=== PATIENT | female | born 1975 | race Two or more races ===

== ENCOUNTER 2019-07-08 11:39 | Inpatient (IN) | payer OTHER ==
[2019-07-08 12:37] VITALS: BMI 23.6
--- NOTE | 2019-07-08 13:31 | HP ---
COWS - Scale Resting Pulse: 0= OK 80 or Below Sweatin=Flushed/Facial Moisture Restless Observation: 1= Difficult to Sit Still Pupil Size: 1= Pupils >than Normal Bone or Joint Aches: 2= Severe Diffuse Aches Runny Nose/ Eye Tearin= Runny Nose/Eyes GI Upset > 30mins: 2= Nausea/Diarrhea Tremor Observation: 4= Gross Tremor/Twitching Yawning Observation: 2= >3x During Session Anxiety or Irritability: 1=Feels Anxious/Irritable Goose Flesh Skin: 0=Smooth Skin COWS Score: 17 CIWA Score Nausea/Vomitin Muscle Tremors: 3 Anxiety: 3 Agitation: 3 Paroxysmal Sweats: 1-Minimal Palms Moist Orientation: 0-Oriented Tacttile Disturbances: 0-None Auditory Disturbances: 0-None Visual Disturbances: 2-Mild Sensitivity Headache: 4-Moderately Severe CIWA-Ar Total Score: 19 - Admission Criteria [facility]AS[facility] Guidelines: Admission for Medically Managed Detox: Requires at least one of the followin. CIWA greater than 12 2. Seizures within the past 24 hours 3. Delirium tremens within the past 24 hours 4. Hallucinations within the past 24 hours 5. Acute intervention needed for co occurring medical disorder 6. Acute intervention needed for co occurring psychiatric disorder 7. Severe withdrawal that cannot be handled at a lower level of care (continued vomiting, continued diarrhea, abnormal vital signs) requiring intravenous medication and/or fluids 8. Admission ROS [facility] - [facility] Chief Complaint: "I'm tired of feeling down, being hopeless and depressed. I want to be a better mom" Allergies/Adverse Reactions: Allergies Allergy/AdvReac Type Severity Reaction Status Date / Time No Known Allergies Allergy Verified 07/08/19 12:29 History of Present Illness: Patient 43 year old female with opiate dependence and alcohol dependence, cocaine and marijuana use disorder. Patient is drinking 1/5 of vodka daily and started 5 years ago. She has had blackouts from overdrinking, last one 4 months ago. Patient 6-8 bags of heroin intranasally daily, started 4 years ago. Patient also uses marijuana about $20 daily since age 33 Patient also occasionally uses cocaine on weekends $50 Patient smokes 1ppd since the age of 21. Psych Hx: None but is depressed and anxious now. Prior Surg Hx: Gastric bypass 14 years ago, tubal ligation 2003 PMH: Asthma on albuterol only. - Ebola screening Have you traveled outside of the country in the last 21 days: No (N) Have you had contact with anyone from an Ebola affected area: No Have you been sick,other than usual withdrawal symptoms: No Do you have a fever: No - Review of Systems Constitutional: Chills, Diaphoresis EENT: reports: Blurred Vision Respiratory: reports: No Symptoms reported Cardiac: reports: No Symptoms Reported GI: reports: Nausea, Abdominal cramping : reports: No Symptoms Reported Musculoskeletal: reports: Muscle Pain Integumentary: reports: No Symptoms Reported Neuro: reports: Headache Endocrine: reports: No Symptoms Reported Hematology: reports: Anemia Psychiatric: reports: Mood/Affect Appropiate, Orientated x3 Other Systems: Reviewed and Negative Patient History - Patient Medical History Hx Anemia: Yes Hx Asthma: Yes Hx Chronic Obstructive Pulmonary Disease (COPD): No Hx Cancer: No Hx Cardiac Disorders: No Hx Congestive Heart Failure: No Hx Hypertension: No Hx Hypercholesterolemia: No Hx Pacemaker: No HX Cerebrovascular Accident: No Hx Seizures: No Hx Dementia: No Hx Diabetes: No Hx Gastrointestinal Disorders: No Hx Liver Disease: No Hx Genitourinary Disorders: No Hx Sexually Transmitted Disorders: No Hx Renal Disease (ESRD): No Hx Thyroid Disease: No Hx Human Immunodeficiency Virus (HIV): No Hx Hepatitis C: No Hx Depression: No (depressed but never had SI or plans.) Hx Suicide Attempt: No Hx Bipolar Disorder: No Hx Schizophrenia: No - Patient Surgical History Past Surgical History: Yes Hx Abdominal Surgery: Yes (gastric bypass 14 years ago) Other Surgical History: tubal ligation 2003 - PPD History Previous Implant?: Yes Documented Results: Negative w/proof Implanted On Prior [facility] Admission?: No Date: 06/10/17 PPD to be Administered?: No - Reproductive History Patient is a Female of Child Bearing Age (11 -55 yrs old): Yes Last Menstrual Period: 07/08/19 (tubal ligation also) Patient : No - Smoking Cessation Smoking history: Current every day smoker Have you smoked in the past 12 months: Yes Aproximately how many cigarettes per day: 20 Hx Chewing Tobacco Use: No Initiated information on smoking cessation: Yes 'Breaking Loose' booklet given: 07/08/19 - Substance & Tx. History Hx Alcohol Use: Yes (11/13 pint vodka) Hx Substance Use: Yes Substance Use Type: Cocaine, Heroin, Marijuana, Opiates Hx Substance Use Treatment: Yes (detox 10 years ago) - Substances abused Heroin Substance route: Inhalation Frequency: Daily Amount used: 6-8 BAGS Age of first use: 39 Date of last use: 07/08/19 Alcohol Substance route: Oral Frequency: Daily Amount used: 1/5TH VODKA Age of first use: 23 Date of last use: 07/08/19 Family Disease History - Family Disease History Family Disease History: Other: Father ( unknown), Mother (alive and well ), Sister (3 sisters, alive and well) Admission Physical Exam [facility] - Vital Signs Vital Signs: Vital Signs - 24 hr 07/08/19 12:31 Temperature 97.8 F Pulse Rate 80 Respiratory 16 Rate Blood Pressure 104/75 - Physical HEENTM: Yes: EOMI, Hearing grossly Normal, Normocephalic, Pharynx Normal Respiratory: Yes: Chest Non-Tender, Lungs Clear, Normal Breath Sounds, No Respiratory Distress Neck: Yes: No masses,lesions,Nodules, Supple, Trachea in good position Breast: Yes: Breast Exam Deferred Cardiology: Yes: Regular Rhythm, Regular Rate, S1, S2 Abdominal: Yes: Non Tender, Flat, Soft, Increased Bowel Sounds Genitourinary: Yes: Within Normal Limits Back: Yes: Normal Inspection Musculoskeletal: Yes: full range of Motion, Gait Steady, Pelvis Stable Extremities: Yes: Normal Capillary Refill, Normal Inspection, Normal Range of Motion, Non-Tender Neurological: Yes: disc sander II-XII NML intact, Fully Oriented, Alert, Motor Strength 5/5 Integumentary: Yes: Normal Color, Warm Lymphatic: Yes: Within Normal Limits - Diagnostic (1) Opioid dependence with withdrawal Current Visit: Yes Status: Acute (2) Asthma Current Visit: Yes Status: Acute (3) 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 Current Visit: Yes Status: Acute Cleared for Admission [facility] - Detox or Rehab [facility] Level of Care: Medically Managed Detox Regimen/Protocol: Methadone/Librium Screened but not Admitted - Documentation of Visit Screened but not Admitted: No Breathalyzer - Breathalyzer Breathalyzer: 0.031 Vital Signs - Vital Signs Vital signs refused: No Temperature: 97.8 F Temperature source: Oral Pulse Rate: 80 Respiratory Rate: 16 Blood Pressure: 104/75 BP Location: Left Arm Blood Pressure position: Sitting - Height Height: 5 ft 4 in - Weight Weight: 138 lb Weight measurement method: Standing scale - BMI Body Mass Index (BMI): 23.6 - Bowel Function Bowel Movement: Yes Inpatient Rehab Admission - Rehab Decision to Admit Inpatient rehab admission?: No
[2019-07-08] MEDS ORDERED: chlordiazePOXIDE HCL 10 MG CAPSULE PO PRN (13:45)
[2019-07-08] MEDS ORDERED: cloNIDine HCL 0.1 MG TABLET PO PRN (13:45)
[2019-07-08] MEDS ORDERED: METHADONE HCL 10 MG TABLET (FOR DETOX USE ONLY) PO ONE (14:20)
[2019-07-08] MEDS: NICOTINE 14 MG/24 HOURS TOPICAL PATCH TD SCH (15:55)
[2019-07-08] MEDS: ALBUTEROL SO4 8 GM HFA INHALER IH SCH ×2 (15:56→22:25)
[2019-07-08 17:52] LABS: HEMATOCRIT 33.2 % (32.4-45.2); HEMOGLOBIN 10.8 GM/dL (10.7-15.3); MCHC 32.5 g/dl (32.0-36.0); MEAN CELL VOLUME 82.9 fl (80-96); MEAN PLT VOLUME 8.9 fl (7.5-11.1); PLATELET COUNT 237 K/MM3 (134-434)
[2019-07-08 18:06] LABS: ALBUMIN 3.6 g/dl (3.4-5.0); BILIRUBIN,TOTAL 0.4 mg/dL (0.2-1); BLOOD UREA NITROGEN 5.8 mg/dL (7-18); CALCIUM 8.5 mg/dL (8.5-10.1); CREATININE 0.7 mg/dL (0.55-1.3); POTASSIUM 3.3 mmol/L (3.5-5.1); TOT PROT 6.7 g/dl (6.4-8.2)
[2019-07-08] MEDS: chlordiazePOXIDE HCL 25 MG CAPSULE PO SCH (22:24)
[2019-07-09] MEDS: chlordiazePOXIDE HCL 25 MG CAPSULE PO SCH ×3 (05:31→21:40)
[2019-07-09] MEDS: ALBUTEROL SO4 8 GM HFA INHALER IH SCH ×3 (05:32→21:43)
[2019-07-09] MEDS ORDERED: METHADONE HCL 5 MG TABLET (FOR DETOX USE ONLY) ONE (09:37)
[2019-07-09] MEDS ORDERED: METHADONE HCL 10 MG TABLET (FOR DETOX USE ONLY) ONE (09:37)
[2019-07-09] MEDS ORDERED: METHADONE (DETOX) 20 MG, METHADONE (DETOX) 5 MG PO ONE (10:00)
[2019-07-09] MEDS: NICOTINE 14 MG/24 HOURS TOPICAL PATCH TD SCH (10:31)
--- NOTE | 2019-07-09 16:07 | PN ---
S CIWA - CIWA Score Nausea/Vomitin Muscle Tremors: 3 Anxiety: 4-Mod. Anxious/Guarded Agitation: 3 Paroxysmal Sweats: 1-Minimal Palms Moist Orientation: 0-Oriented Tacttile Disturbances: 0-None Auditory Disturbances: 0-None Visual Disturbances: 0-None Headache: 0-None Present CIWA-Ar Total Score: 14 [facility] COWS - Scale Resting Pulse: 1= [place] 81-100 Sweatin= Chills/Flushing Restless Observation: 0= Sits Still Pupil Size: 0= Normal to Room Light Bone or Joint Aches: 4=Acute Joint/Muscle Pain Runny Nose/ Eye Tearin= None GI Upset > 30mins: 2= Nausea/Diarrhea (no diarrhea) Tremor Observation of Outstretched Hands: 1= Tremor [place], Not Seen Yawning Observation: 0= None Anxiety or Irritability: 2=Irritable/Anxious Goose Flesh Skin: 0=Smooth Skin COWS Score: 11 S Progress Note (SOAP) Subjective: 43 y/o male admitted for opioid and alcohol detox. Pt c/o Nausea, body aches, chills, anxiety, irritability. Objective: 07/09/19 16:05 Vital Signs - 24 hr 07/08/19 07/08/19 07/09/19 17:51 21:36 00:30 Temperature 98.1 F 97.9 F Pulse Rate 89 77 Respiratory 16 16 18 Rate Blood Pressure 92/67 110/65 07/09/19 07/09/19 07/09/19 03:30 06:10 09:15 Temperature 98.8 F 97.9 F Pulse Rate 66 76 Respiratory 18 16 18 Rate Blood Pressure 95/61 105/74 07/09/19 13:11 Temperature 97.7 F Pulse Rate 82 Respiratory 18 Rate Blood Pressure 97/63 Laboratory Tests 07/08/19 07/08/19 07/08/19 14:10 14:10 14:10 WBC 5.0 RBC 4.00 Hgb 10.8 Hct 33.2 MCV 82.9 MCH 27.0 MCHC 32.5 RDW 16.0 H Plt Count 237 MPV 8.9 Sodium 142 Potassium 3.3 L Chloride 107 Carbon Dioxide 26 Anion Gap 8 BUN 5.8 L Creatinine 0.7 Est GFR (CKD-EPI)AfAm 123.86 Est GFR (CKD-EPI)NonAf 106.87 Random Glucose 68 L Calcium 8.5 Total Bilirubin 0.4 AST 21 ALT 18 Alkaline Phosphatase 95 Total Protein 6.7 Albumin 3.6 RPR Titer Nonreactive h/h=/33.2 k+ = 3.3 Assessment: 07/09/19 16:06 withdrawal sx hypokalemia Plan: continue detox meth/rebecca taper kdur 20 meq po bid increase po fluids as tolerated
[2019-07-09] MEDS ORDERED: POTASSIUM CHLORIDE TABS 20 MEQ TABLET.ER (FP) PO ONE (16:08)
[2019-07-09] MEDS ORDERED: FERROUS SO4 325 MG TABLET (FP) PO SCH (16:15)
[2019-07-09] MEDS: ONDANSETRON *ODT* 4 MG TABLET SL PRN (17:11)
[2019-07-09] MEDS: POTASSIUM CHLORIDE TABS 20 MEQ TABLET.ER (FP) PO SCH (21:40)
[2019-07-10] MEDS: ALBUTEROL SO4 8 GM HFA INHALER IH SCH ×3 (05:28→22:08)
[2019-07-10] MEDS: chlordiazePOXIDE 5 MG CAPSULE PO SCH ×3 (05:28→22:08)
--- NOTE | 2019-07-10 09:42 | PN ---
[facility] CIWA - CIWA Score Nausea/Vomitin-Mild Nausea/No Vomiting Muscle Tremors: 3 Anxiety: 2 Agitation: 2 Paroxysmal Sweats: 1-Minimal Palms Moist Orientation: 0-Oriented Tacttile Disturbances: 0-None Auditory Disturbances: 0-None Visual Disturbances: 0-None Headache: 1-Very Mild CIWA-Ar Total Score: 10 [facility] COWS - Scale Resting Pulse: 0= [place] 80 or Below Sweatin= Chills/Flushing Restless Observation: 0= Sits Still Pupil Size: 0= Normal to Room Light Bone or Joint Aches: 1= Mild Discomfort Runny Nose/ Eye Tearin= Nasal Congestion GI Upset > 30mins: 2= Nausea/Diarrhea (no diarrhea) Tremor Observation of Outstretched Hands: 2= Slight Tremor Visible Yawning Observation: 1= 1-2x During Session Anxiety or Irritability: 2=Irritable/Anxious Goose Flesh Skin: 0=Smooth Skin COWS Score: 10 [facility] Progress Note (SOAP) Subjective: 43 years old female first patient [facility] admission was admitted on 07/08 for acute alcohol and opiate withdrawal sx management doing well with librium and methadone detox regimen sweat and tremor Objective: 07/10/19 09:43 Vital Signs Temperature 98.2 F 07/10/19 06:29 Pulse Rate 69 07/10/19 06:29 Respiratory Rate 16 07/10/19 06:29 Blood Pressure 99/65 07/10/19 06:29 O2 Sat by Pulse Oximetry (%) Laboratory Last Values WBC 5.0 K/mm3 (4.0-10.0) 07/08/19 14:10 RBC 4.00 M/mm3 (3.60-5.2) 07/08/19 14:10 Hgb 10.8 GM/dL (10.7-15.3) 07/08/19 14:10 Hct 33.2 % (32.4-45.2) 07/08/19 14:10 MCV 82.9 fl (80-96) 07/08/19 14:10 MCH 27.0 pg (25.7-33.7) 07/08/19 14:10 MCHC 32.5 g/dl (32.0-36.0) 07/08/19 14:10 RDW 16.0 % (11.6-15.6) H 07/08/19 14:10 Plt Count 237 K/MM3 (134-434) 07/08/19 14:10 MPV 8.9 fl (7.5-11.1) 07/08/19 14:10 Sodium 142 mmol/L (136-145) 07/08/19 14:10 Potassium 3.3 mmol/L (3.5-5.1) L 07/08/19 14:10 Chloride 107 mmol/L (98-107) 07/08/19 14:10 Carbon Dioxide 26 mmol/L (21-32) 07/08/19 14:10 Anion Gap 8 MMOL/L (8-16) 07/08/19 14:10 BUN 5.8 mg/dL (7-18) L 07/08/19 14:10 Creatinine 0.7 mg/dL (0.55-1.3) 07/08/19 14:10 Est GFR (CKD-EPI)AfAm 123.86 07/08/19 14:10 Est GFR (CKD-EPI)NonAf 106.87 07/08/19 14:10 Random Glucose 68 mg/dL (74-106) L 07/08/19 14:10 Calcium 8.5 mg/dL (8.5-10.1) 07/08/19 14:10 Total Bilirubin 0.4 mg/dL (0.2-1) 07/08/19 14:10 AST 21 U/L (15-37) 07/08/19 14:10 ALT 18 U/L (13-61) 07/08/19 14:10 Alkaline Phosphatase 95 U/L (45-117) 07/08/19 14:10 Total Protein 6.7 g/dl (6.4-8.2) 07/08/19 14:10 Albumin 3.6 g/dl (3.4-5.0) 07/08/19 14:10 RPR Titer Nonreactive (NONREACTIVE) 07/08/19 14:10 lab noted 07/10/19 09:45 K+ supplement with repeat K+ on 07/12/10 Assessment: 07/10/19 09:45 alcohol and opiate withdrawal sx alert oriented x 3 breath ease and even Plan: continue libirum and methadone detox regimen
[2019-07-10] MEDS ORDERED: METHADONE HCL 10 MG TABLET (FOR DETOX USE ONLY) PO ONE (10:00)
[2019-07-10] MEDS: POTASSIUM CHLORIDE TABS 20 MEQ TABLET.ER (FP) PO SCH ×2 (10:31→22:09)
[2019-07-10] MEDS: NICOTINE 14 MG/24 HOURS TOPICAL PATCH TD SCH (10:31)
[2019-07-10] MEDS: BISMUTH SUBSALICYLATE 262 MG/15 ML BTL PO SCH (14:16)
[2019-07-10] MEDS: QUEtiapine FUMARATE 50 MG TABLET PO SCH (22:09)
[2019-07-11] MEDS ORDERED: chlordiazePOXIDE HCL 10 MG CAPSULE PO PRN
[2019-07-11] MEDS: ALBUTEROL SO4 8 GM HFA INHALER IH SCH ×3 (06:16→21:45)
[2019-07-11] MEDS: chlordiazePOXIDE HCL 10 MG CAPSULE PO SCH ×3 (06:16→21:45)
[2019-07-11] MEDS ORDERED: METHADONE HCL 5 MG TABLET (FOR DETOX USE ONLY) ONE (08:25)
[2019-07-11] MEDS ORDERED: METHADONE HCL 10 MG TABLET (FOR DETOX USE ONLY) ONE (08:25)
--- NOTE | 2019-07-11 08:58 | PN ---
[facility] CIWA - CIWA Score Nausea/Vomitin-No Nausea/No Vomiting Muscle Tremors: 3 Anxiety: 1-Mildly Anxious Agitation: 2 Paroxysmal Sweats: 2 Orientation: 0-Oriented Tacttile Disturbances: 0-None Auditory Disturbances: 0-None Visual Disturbances: 0-None Headache: 0-None Present CIWA-Ar Total Score: 8 [facility] COWS - Scale Resting Pulse: 0= [place] 80 or Below Sweatin= Chills/Flushing Restless Observation: 0= Sits Still Pupil Size: 0= Normal to Room Light Bone or Joint Aches: 1= Mild Discomfort Runny Nose/ Eye Tearin= Nasal Congestion GI Upset > 30mins: 1= Stomach Cramp Tremor Observation of Outstretched Hands: 2= Slight Tremor Visible Yawning Observation: 1= 1-2x During Session Anxiety or Irritability: 1=Feels Anxious/Irritable Goose Flesh Skin: 0=Smooth Skin COWS Score: 8 [facility] Progress Note (SOAP) Subjective: doing well with librium and methadone detox regimen feeling better today less tremor mild body aches prefers resting on bed "little longer" Objective: 07/11/19 08:58 Vital Signs Temperature 98.5 F 07/11/19 07:19 Pulse Rate 67 07/11/19 07:19 Respiratory Rate 18 07/11/19 07:19 Blood Pressure 98/58 L 07/11/19 07:19 O2 Sat by Pulse Oximetry (%) Laboratory Last Values WBC 5.0 K/mm3 (4.0-10.0) 07/08/19 14:10 RBC 4.00 M/mm3 (3.60-5.2) 07/08/19 14:10 Hgb 10.8 GM/dL (10.7-15.3) 07/08/19 14:10 Hct 33.2 % (32.4-45.2) 07/08/19 14:10 MCV 82.9 fl (80-96) 07/08/19 14:10 MCH 27.0 pg (25.7-33.7) 07/08/19 14:10 MCHC 32.5 g/dl (32.0-36.0) 07/08/19 14:10 RDW 16.0 % (11.6-15.6) H 07/08/19 14:10 Plt Count 237 K/MM3 (134-434) 07/08/19 14:10 MPV 8.9 fl (7.5-11.1) 07/08/19 14:10 Sodium 142 mmol/L (136-145) 07/08/19 14:10 Potassium 3.3 mmol/L (3.5-5.1) L 07/08/19 14:10 Chloride 107 mmol/L (98-107) 07/08/19 14:10 Carbon Dioxide 26 mmol/L (21-32) 07/08/19 14:10 Anion Gap 8 MMOL/L (8-16) 07/08/19 14:10 BUN 5.8 mg/dL (7-18) L 07/08/19 14:10 Creatinine 0.7 mg/dL (0.55-1.3) 07/08/19 14:10 Est GFR (CKD-EPI)AfAm 123.86 07/08/19 14:10 Est GFR (CKD-EPI)NonAf 106.87 07/08/19 14:10 Random Glucose 68 mg/dL (74-106) L 07/08/19 14:10 Calcium 8.5 mg/dL (8.5-10.1) 07/08/19 14:10 Total Bilirubin 0.4 mg/dL (0.2-1) 07/08/19 14:10 AST 21 U/L (15-37) 07/08/19 14:10 ALT 18 U/L (13-61) 07/08/19 14:10 Alkaline Phosphatase 95 U/L (45-117) 07/08/19 14:10 Total Protein 6.7 g/dl (6.4-8.2) 07/08/19 14:10 Albumin 3.6 g/dl (3.4-5.0) 07/08/19 14:10 RPR Titer Nonreactive (NONREACTIVE) 07/08/19 14:10 lab noted 07/11/19 08:58 encourage oral fluid low K+ continue K+ supplement repeat 07/12/19 Assessment: 07/11/19 08:59 alcohol and opiate withdrawal sx alert speech clearly tolerate food and fluid well denies dizziness Plan: continue librium and methadone detox regimen
[2019-07-11] MEDS ORDERED: METHADONE (DETOX) 10 MG, METHADONE (DETOX) 5 MG PO ONE (10:00)
[2019-07-11] MEDS: POTASSIUM CHLORIDE TABS 20 MEQ TABLET.ER (FP) PO SCH ×2 (10:09→21:45)
[2019-07-11] MEDS: BISMUTH SUBSALICYLATE 262 MG/15 ML BTL PO SCH (10:09)
[2019-07-11] MEDS: NICOTINE 14 MG/24 HOURS TOPICAL PATCH TD SCH (10:11)
[2019-07-11] MEDS: ONDANSETRON *ODT* 4 MG TABLET SL PRN (19:32)
[2019-07-11] MEDS: QUEtiapine FUMARATE 50 MG TABLET PO SCH (21:45)
[2019-07-12] MEDS ORDERED: chlordiazePOXIDE HCL 10 MG CAPSULE PO ONE (05:00)
[2019-07-12] MEDS: ALBUTEROL SO4 8 GM HFA INHALER IH SCH ×3 (05:22→22:01)
[2019-07-12] MEDS ORDERED: METHADONE HCL 10 MG TABLET (FOR DETOX USE ONLY) PO ONE (10:00)
[2019-07-12] MEDS: POTASSIUM CHLORIDE TABS 20 MEQ TABLET.ER (FP) PO SCH ×2 (10:11→22:00)
[2019-07-12] MEDS: BISMUTH SUBSALICYLATE 262 MG/15 ML BTL PO SCH (10:13)
[2019-07-12] MEDS: NICOTINE 14 MG/24 HOURS TOPICAL PATCH TD SCH (10:13)
--- NOTE | 2019-07-12 10:54 | PN ---
[facility] Progress Note Note: c/o left foot pain from left 5th toe "pump" into the floor of shower wall on pain on ambulation left 5th toe skin intact mild swell tender on palpate limited extension and dorsal flexion kinza bandage for immobilization encourage elevation resting rule out fracture left foot x ray
[2019-07-12] MEDS: hydrOXYzine PAMOATE 25 MG CAPSULE (FP) PO PRN ×2 (18:31→22:01)
[2019-07-12] MEDS: QUEtiapine FUMARATE 50 MG TABLET PO SCH (22:00)
[2019-07-13] MEDS: ALBUTEROL SO4 8 GM HFA INHALER IH SCH (05:24)
[2019-07-13] MEDS ORDERED: METHADONE HCL 5 MG TABLET (FOR DETOX USE ONLY) PO ONE (06:00)
[2019-07-13 09:17] VITALS: BP 116/77; PULSE 70; TEMP 98.1
[2019-07-13] MEDS: BISMUTH SUBSALICYLATE 262 MG/15 ML BTL PO SCH (10:30)
[2019-07-13] MEDS: POTASSIUM CHLORIDE TABS 20 MEQ TABLET.ER (FP) PO SCH (10:30)
[2019-07-13] MEDS: NICOTINE 14 MG/24 HOURS TOPICAL PATCH TD SCH (10:30)
[2019-07-13] MEDS: hydrOXYzine PAMOATE 25 MG CAPSULE (FP) PO PRN (10:32)
== END 2019-07-13 12:35 | disposition other institution (70) | DRG 773 ==
LOC: YASAS 11:39 → Y3N 14:15
PROVIDERS: ADMIT Surgery; ATTEND Surgery
PROC: HZ2ZZZZ Detoxification Services for Substance Abuse Treatment (ICD-10-PCS; principal; 2019-07-08)
DX: F10.230 Alcohol dependence with withdrawal, uncomplicated (principal); F11.23 Opioid dependence with withdrawal; F14.10 Cocaine abuse, uncomplicated; F12.10 Cannabis abuse, uncomplicated; F19.24 Other psychoactive substance dependence with psychoactive substance-induced mood disorder; E87.6 Hypokalemia; J45.909 Unspecified asthma, uncomplicated; M79.672 Pain in left foot; W22.8XXA Striking against or struck by other objects, initial encounter; Y93.E1 Activity, personal bathing and showering; Y92.231 Patient bathroom in hospital as the place of occurrence of the external cause; Y99.8 Other external cause status; Z98.84 Bariatric surgery status
CPT/HCPCS: 36415; 80053; 81025; 84132; 85027; 86480; 86593; Q0162

== ENCOUNTER 2019-07-13 12:50 | Inpatient (IN) | payer OTHER | END 2019-07-26 09:42 | disposition home or self-care (01) | LOC: Y3E 07-25 19:20 → YASAS 12:50 → Y3W 12:51 ==

== ENCOUNTER 2022-05-30 12:15 | Inpatient (IN) | payer OTHER ==
[2022-05-30 14:14] VITALS: BMI 19.2
[2022-05-30] MEDS ORDERED: MAGNESIUM HYDROX 2400MG/30ML ORAL SUSPENSION 30 ML CUP PO PRN (17:29)
[2022-05-30] MEDS ORDERED: IBUPROFEN 400 MG TABLET (FP) PO PRN (17:29)
[2022-05-30] MEDS ORDERED: NALOXONE HCL 0.4 MG/ML VIAL IM PRN (17:29)
[2022-05-30] MEDS ORDERED: LOPERAMIDE HCL 2 MG CAPSULE PO PRN (17:29)
[2022-05-30] MEDS ORDERED: ACETAMINOPHEN 325 MG TABLET (FP) PO PRN (17:29)
[2022-05-30] MEDS ORDERED: BISMUTH SUBSALICYLATE 524 MG/30 ML PO PRN (17:29)
[2022-05-30] MEDS ORDERED: NICOTINE POLACRILEX 2 MG GUM BUC PRN (17:29)
[2022-05-30] MEDS ORDERED: MAGNESIUM CITRATE 300 ML BOTTLE PO PRN (17:29)
[2022-05-30] MEDS ORDERED: BENZOCAINE/MENTHOL (CHLORASEPTIC ) LOZENGE MM PRN (17:29)
[2022-05-30] MEDS ORDERED: IBUPROFEN 600 MG TABLET (FP) PO PRN (17:29)
[2022-05-30] MEDS ORDERED: methaDONE HCL 10 MG TABLET (FOR DETOX USE ONLY) PO ONE (19:00)
[2022-05-30] MEDS: THIAMINE HCL 100 MG TABLET (FP) PO SCH (22:20)
[2022-05-30] MEDS: MELATONIN 5 MG TABLETS PO SCH (22:21)
[2022-05-30] MEDS: MAG HYDROX/AL HYDROX/SIMETH 30 ML UNIT-DOSE CUP PO PRN (23:37)
[2022-05-31] MEDS: DICYCLOMINE HCL 10 MG CAPSULE PO PRN ×2 (00:57→09:04)
[2022-05-31] MEDS: SUCRALFATE 1 GM TABLET (FP) PO SCH ×4 (02:24→15:53)
[2022-05-31] MEDS ORDERED: PROCHLORPERAZINE MALEATE 5 MG TABLET PO PRN (02:59)
[2022-05-31] MEDS ORDERED: PROCHLORPERAZINE MALEATE 5 MG TABLET PO ONE (02:59)
[2022-05-31] MEDS: cloNIDine HCL 0.1 MG TABLET PO PRN (03:10)
[2022-05-31] MEDS ORDERED: hydrOXYzine PAMOATE 50 MG CAPSULE (FP) PO ONE (03:11)
[2022-05-31] MEDS: METHOCARBAMOL 500 MG TABLET PO PRN ×3 (03:11→18:44)
[2022-05-31] MEDS: clonazePAM 0.5 MG ODT TABLETS SL PRN ×2 (05:36→18:44)
[2022-05-31 08:57] LABS: ALBUMIN 3.4 g/dl (3.4-5.0); CALCIUM 8.2 mg/dL (8.5-10.1)
[2022-05-31 08:59] LABS: BILIRUBIN,TOTAL 0.4 mg/dL (0.2-1); CREATININE 0.7 mg/dL (0.55-1.3); TOT PROT 6.2 g/dl (6.4-8.2)
[2022-05-31 09:00] LABS: HEMATOCRIT 29.7 % (32.4-45.2); HEMOGLOBIN 9.5 GM/dL (10.7-15.3); MCH 26.4 pg (25.7-33.7); MCHC 31.8 g/dl (32.0-36.0); MEAN PLT VOLUME 8.2 fl (7.5-11.1); PLATELET COUNT 271 10^3/uL (134-434); RBC 3.58 M/mm3 (3.60-5.2); WHITE BLOOD COUNT 11.6 K/mm3 (4.0-10.0)
[2022-05-31] MEDS: ACETAMINOPHEN 325 MG TABLET (FP) PO PRN ×2 (09:06→14:42)
[2022-05-31] MEDS ORDERED: methaDONE HCL 10 MG TABLET (FOR DETOX USE ONLY) ONE (10:07)
[2022-05-31] MEDS: PRENATAL VITAMINS W/ FOLIC ACID TABLET (FP) PO SCH (10:37)
[2022-05-31] MEDS: NICOTINE 14 MG/24 HOURS TOPICAL PATCH TD SCH (10:39)
[2022-05-31] MEDS: MAG HYDROX/AL HYDROX/SIMETH 30 ML UNIT-DOSE CUP PO PRN (14:45)
[2022-05-31] MEDS: PANTOPRAZOLE 20 MG TABLET PO SCH (15:53)
[2022-05-31] MEDS: MELATONIN 5 MG TABLETS PO SCH (22:29)
[2022-05-31] MEDS: THIAMINE HCL 100 MG TABLET (FP) PO SCH (22:29)
[2022-06-01] MEDS: cloNIDine HCL 0.1 MG TABLET PO PRN (01:28)
[2022-06-01] MEDS: ACETAMINOPHEN 325 MG TABLET (FP) PO PRN ×3 (05:06→23:05)
[2022-06-01] MEDS: SUCRALFATE 1 GM TABLET (FP) PO SCH ×3 (06:33→17:11)
[2022-06-01] MEDS ORDERED: methaDONE HCL 10 MG TABLET (FOR DETOX USE ONLY) PO ONE (10:00)
[2022-06-01] MEDS: DICYCLOMINE HCL 10 MG CAPSULE PO PRN (10:24)
[2022-06-01] MEDS: NICOTINE 14 MG/24 HOURS TOPICAL PATCH TD SCH (10:24)
[2022-06-01] MEDS: PRENATAL VITAMINS W/ FOLIC ACID TABLET (FP) PO SCH (10:24)
[2022-06-01] MEDS: PANTOPRAZOLE 20 MG TABLET PO SCH (10:24)
[2022-06-01] MEDS: METHOCARBAMOL 500 MG TABLET PO PRN ×2 (10:24→18:51)
[2022-06-01] MEDS: hydrOXYzine PAMOATE 25 MG CAPSULE (FP) PO PRN ×2 (17:36→22:41)
[2022-06-01] MEDS: clonazePAM 0.5 MG ODT TABLETS SL PRN (17:36)
[2022-06-01 21:17] VITALS: RESP 18
[2022-06-01] MEDS ORDERED: traZODone HCL 100 MG TABLET (FP) PO SCH (22:00)
[2022-06-01] MEDS: MELATONIN 5 MG TABLETS PO SCH (22:41)
[2022-06-01] MEDS: THIAMINE HCL 100 MG TABLET (FP) PO SCH (22:41)
[2022-06-02] MEDS: METHOCARBAMOL 500 MG TABLET PO PRN ×2 (00:41→10:41)
[2022-06-02] MEDS: clonazePAM 0.5 MG ODT TABLETS SL PRN ×2 (01:25→13:22)
[2022-06-02] MEDS: SUCRALFATE 1 GM TABLET (FP) PO SCH ×2 (06:02→10:39)
[2022-06-02] MEDS: ACETAMINOPHEN 325 MG TABLET (FP) PO PRN (10:40)
[2022-06-02] MEDS: hydrOXYzine PAMOATE 25 MG CAPSULE (FP) PO PRN (10:41)
[2022-06-02] MEDS: PRENATAL VITAMINS W/ FOLIC ACID TABLET (FP) PO SCH (10:42)
[2022-06-02] MEDS: NICOTINE 14 MG/24 HOURS TOPICAL PATCH TD SCH (10:44)
[2022-06-02] MEDS: PANTOPRAZOLE 20 MG TABLET PO SCH (10:52)
[2022-06-02] MEDS ORDERED: GABAPENTIN 300 MG CAPSULE PO SCH (13:00)
[2022-06-02 13:06] VITALS: BP 153/91; PULSE 50; TEMP 97.8
[2022-06-02] MEDS ORDERED: ALBUTEROL SO4 HFA INHALER IH PRN (14:24)
[2022-06-03] MEDS ORDERED: methaDONE HCL 10 MG TABLET (FOR DETOX USE ONLY) PO ONE (10:00)
== END 2022-06-02 15:10 | disposition left against medical advice (07) | DRG 770 ==
LOC: YASAS 12:15 → Y6N 17:49
PROVIDERS: ADMIT Allergy & Immunology; ATTEND Surgery
PROC: HZ2ZZZZ Detoxification Services for Substance Abuse Treatment (ICD-10-PCS; principal; 2022-05-30)
DX: F11.23 Opioid dependence with withdrawal (principal); F10.20 Alcohol dependence, uncomplicated; F14.20 Cocaine dependence, uncomplicated; F12.20 Cannabis dependence, uncomplicated; F17.210 Nicotine dependence, cigarettes, uncomplicated; F19.282 Other psychoactive substance dependence with psychoactive substance-induced sleep disorder; F19.280 Other psychoactive substance dependence with psychoactive substance-induced anxiety disorder; F19.24 Other psychoactive substance dependence with psychoactive substance-induced mood disorder; J45.20 Mild intermittent asthma, uncomplicated; K21.9 Gastro-esophageal reflux disease without esophagitis; R10.13 Epigastric pain; Z87.11 Personal history of peptic ulcer disease
CPT/HCPCS: 36415; 80053; 85027; 86780; 93005; 93010; C9803-CS; J0735; U0003; U0005

== ENCOUNTER 2022-06-02 04:25 | Emergency (ER) | payer OTHER ==
[2022-06-02 04:33] VITALS: TEMP 98; BMI 19.2
[2022-06-02] MEDS ORDERED: FAMOTIDINE 20 MG/50 ML IVPB 20 MG/50 ML MG IVPB ONE ×2 (05:09→05:39)
[2022-06-02] MEDS ORDERED: SUCRALFATE 1 GM/10 ML UNIT DOSE CUPS PO ONE (05:10)
[2022-06-02] MEDS ORDERED: MAG HYDROX/AL HYDROX/SIMETH 30 ML UNIT-DOSE CUP PO ONE (05:11)
[2022-06-02] MEDS ORDERED: ACETAMINOPHEN 325 MG TABLET (FP) PO ONE (05:25)
[2022-06-02] MEDS ORDERED: MAG HYDROX/AL HYDROX/SIMETH 30 ML UNIT-DOSE CUP ONE (05:38)
[2022-06-02] MEDS ORDERED: ACETAMINOPHEN 325 MG TABLET (FP) ONE (05:38)
[2022-06-02 06:31] LABS: CALCIUM 8.5 mg/dL (8.5-10.1)
[2022-06-02 06:32] LABS: ALBUMIN 3.5 g/dl (3.4-5.0); BLOOD UREA NITROGEN 9.9 mg/dL (7-18)
[2022-06-02 06:35] LABS: CREATININE 0.7 mg/dL (0.55-1.3)
[2022-06-02 06:36] LABS: BILIRUBIN,TOTAL 0.5 mg/dL (0.2-1); TOT PROT 6.8 g/dl (6.4-8.2)
[2022-06-02 06:39] LABS: BASO % 0.4 % (0-2.0); EOS % 0.3 % (0-4.5); HEMATOCRIT 34.2 % (32.4-45.2); LYMPH % 38.8 % (8-40); MCH 26.4 pg (25.7-33.7); MCHC 32.1 g/dl (32.0-36.0); MEAN CELL VOLUME 82.2 fl (80-96); MEAN PLT VOLUME 8.2 fl (7.5-11.1); MONO % 4.7 % (3.8-10.2); NEUT % 55.8 % (42.8-82.8); PLATELET COUNT 267 10^3/uL (134-434); RBC 4.16 M/mm3 (3.60-5.2); RDW 19.6 % (11.6-15.6); WHITE BLOOD COUNT 6.4 K/mm3 (4.0-10.0)
[2022-06-02 08:35] VITALS: BP 137/77; PULSE 46; RESP 16
[2022-06-02] MEDS ORDERED: PANTOPRAZOLE 20 MG TABLET PO ONE ×2 (08:35→08:36)
[2022-06-02] MEDS ORDERED: methaDONE HCL 10 MG TABLET ONE (09:10)
== END 2022-06-02 10:15 | disposition home or self-care (01) ==
LOC: JER 04:25
DX: R10.13 Epigastric pain (principal)
CPT/HCPCS: 36415; 71045-TC-FY; 80053; 83690; 84484; 85025; 93005; 93010; 99284-25